=== PATIENT | male | born 1965 | race Caucasian/White ===

== ENCOUNTER 2019-02-01 17:46 | Emergency (ER) | payer OTHER, BC ==
[~2019-02-01] VITALS: Ht 182.9 cm; Wt 140.6 kg
[2019-02-01] MEDS ORDERED: ONDANSETRON ODT 4 MG TAB PO ONE (23:00)
[2019-02-01] MEDS ORDERED: HYDROcodone-ACET 10/325MG TAB PO ONE (23:00)
[2019-02-02] VITALS: BP 145/94
== END 2019-02-02 00:22 | disposition home or self-care (01) ==
LOC: EDBD 17:46 → ER 17:51
DX: S80.02XA Contusion of left knee, initial encounter (principal); S16.1XXA Strain of muscle, fascia and tendon at neck level, initial encounter; S39.012A Strain of muscle, fascia and tendon of lower back, initial encounter; E11.9 Type 2 diabetes mellitus without complications; V49.9XXA Car occupant (driver) (passenger) injured in unspecified traffic accident, initial encounter; Y93.89 Activity, other specified; Y92.410 Unspecified street and highway as the place of occurrence of the external cause; Y99.8 Other external cause status
CPT/HCPCS: 72125; 72131; 73562; 82962; 99284; Q0162

== ENCOUNTER 2020-07-16 05:56 | Day surgery (SDC) | payer MEDICAID ==
[~2020-07-16] VITALS: Ht 190.5 cm; Wt 124.7 kg
[~2020-07-16 05:56] MED LIST: ACET1CAP14 PO; ATOR10TA52 PO; IBUP400T22 PO; LISI2.5T47 PO; METF-370 PO; MULT-1047 PO
[2020-07-16] MEDS ORDERED: SUCCINYLCHOLINE CHLORIDE 20 MG/ML 10ML VIAL IV ONE (07:02)
[2020-07-16] MEDS ORDERED: MIDAZOLAM HCL 2MG/2ML 2ml VIAL (1mg/ml) ONE (07:04)
[2020-07-16] MEDS ORDERED: fentaNYL CITRATE 100 MCG/2 ML VL ONE ×2 (07:04→09:09)
[2020-07-16] MEDS ORDERED: fentaNYL CITRATE 5 ML ONE (07:04)
[2020-07-16] MEDS ORDERED: ROCURONIUM 10MG/ML 10ML VIAL IV ONE (07:04)
[2020-07-16] MEDS ORDERED: SODIUM CHLORIDE LOCK 10 ML ONE (07:05)
[2020-07-16] MEDS ORDERED: METOCLOPRAMIDE HCL 5MG/ml INJ 2ml VIAL ONE ×2 (07:05→10:32)
[2020-07-16] MEDS ORDERED: NEOSTIGMINE 1 MG/ML INJ (10mg/10ML VIAL) ONE (07:05)
[2020-07-16] MEDS ORDERED: GLYCOPYRROLATE 0.2 MG/ML 1ML VIAL ONE (07:05)
[2020-07-16] MEDS ORDERED: PROPOFOL 10 MG/ML 20 ML IV ONE (07:05)
[2020-07-16] MEDS ORDERED: ONDANSETRON HCL 4 MG/2 ML VIAL ONE ×2 (07:05→10:53)
[2020-07-16] MEDS ORDERED: BUPIVACAINE 0.25% INJ 50ML VIAL ONE (07:08)
[2020-07-16] MEDS ORDERED: EPINEPHrine HCL 1 MG/1 ML AMP ONE (07:09)
[2020-07-16] MEDS ORDERED: LIDOCAINE 2% (LOCAL ANESTH.) PF 5ml SDV ONE (07:23)
[2020-07-16] MEDS ORDERED: ESMOLOL HCL 10 ML IV ONE (08:37)
[2020-07-16] MEDS ORDERED: KETOROLAC TROMETH 30 MG/ML 1ML VIAL IV ONE (09:00)
[2020-07-16] MEDS ORDERED: METOCLOPRAMIDE HCL 5MG/ml INJ 2ml VIAL IV PRN (09:00)
[2020-07-16] MEDS ORDERED: fentaNYL CITRATE 100 MCG/2 ML VL IV PRN (09:00)
[2020-07-16] MEDS ORDERED: HYDROmorphone HCL 2 MG/ML VL IV PRN ×2 (09:00)
[2020-07-16] MEDS ORDERED: ACCU-CHEK COMFORT CURVE STRIP VI ONE (09:00)
[2020-07-16] MEDS ORDERED: MORPHINE SULFATE 4 MG/ML SYR/VIAL IV PRN (09:00)
[2020-07-16] MEDS ORDERED: HYDROmorphone HCL 2 MG/ML VL ONE (10:32)
[2020-07-16] MEDS ORDERED: ALBUTEROL SULF 2.5 MG/0.5ML(0.5%) NEB SOLN ONE (10:40)
[2020-07-16] MEDS ORDERED: PROMETHAZINE HCL 25 MG/ML 1ML ONE (10:55)
[2020-07-16 11:45] VITALS: BP 125/56
== END 2020-07-16 12:40 | disposition home or self-care (01) ==
LOC: SUR 05:56
PROVIDERS: ATTEND Orthopaedic Surgery Sports Medicine
DX: M75.102 Unspecified rotator cuff tear or rupture of left shoulder, not specified as traumatic (principal); I10 Essential (primary) hypertension; E11.9 Type 2 diabetes mellitus without complications; E66.01 Morbid (severe) obesity due to excess calories; E78.5 Hyperlipidemia, unspecified; G89.29 Other chronic pain; Z20.822 Contact with and (suspected) exposure to COVID-19; Z98.890 Other specified postprocedural states; Z79.899 Other long term (current) drug therapy; Z79.84 Long term (current) use of oral hypoglycemic drugs; Z90.49 Acquired absence of other specified parts of digestive tract; Z68.41 Body mass index [BMI] 40.0-44.9, adult; Z87.891 Personal history of nicotine dependence
CPT/HCPCS: 29806; 29824; 29826; 29827; 82962; C1713; J0171; J0330; J1170; J2001; J2250; J2405; J2550; J2704; J2765; J3010; J3490; U0003; A4565